=== PATIENT | female | born 1960 | race Two or more races ===

== ENCOUNTER 2017-05-15 11:25 | Emergency (ER) | payer OTHER ==
--- NOTE | ~2017-05-15 | CT2 ---
[facility] A Service of [facility] & [facility] RADIOLOGY TEXT RESULTS PATIENT: LEDY PENA LOCATION: [facility] : 64 UNIT #: [id number] AGE: [address]: Lori Narayan SEX: F ORDER DR: [id number] [facility] [address] [place], [place] [address] [id number] MR#: [id number] Acc #: [id number] NAME: LEDY PENA. : 1960 SEX: F STUDY DATE/TIME: 05/15/2017 15:04 UNIT: [facility] ROOM: STUDY DESCRIPTION: CT Abd and Pelv W Cont Attending Physician: Lori Narayan P.A.-C. Ordering Physician: Lori Narayan P.A.-C. Primary Care Physician: [facility] [place] MEDICAL IMAGING REPORT This report is preliminary unless electronic signature is present EXAM Abdomen and pelvis CT scan with contrast HISTORY Lower abdominal pain for 2 days history of appendectomy and hysterectomy, asthma and hypertension. COMMENT CT abdomen and pelvis performed during the intravenous administration of 100 mL of Isovue-370 with imaging acquired in the axial plane followed by sagittal and coronal reconstructed images. There is no comparison. This CT exam was performed with one or more of the following radiation dose reduction techniques: automatic exposure control, adjustment of mA and/or kV according to patient size, and iterative reconstruction. FINDINGS There is no abnormality at the lung bases. CT Abdomen: There is a cyst at the caudate lobe of the liver about 3.3 cm in dimension and a tiny low-attenuation lesion in the dome of the liver in the right lobe anteriorly which is probably a cyst, but it is too small to characterize further. The spleen, adrenal glands pancreas and kidneys are unremarkable. The gallbladder is full, but there is no definite wall thickening. There could be a few tiny stones near the gallbladder neck. No pericholecystic fluid is seen. Evaluation of the pelvis shows unremarkable appearance of the urinary bladder. Patient states history of hysterectomy, but there is some possibly residual cervix. Please correlate with the operative note. This is seen to the left of midline in the pelvis. Patient provides history of appendectomy. No appendix is identified. There is no bowel obstruction. [facility]. [facility] A Service of [facility] & [facility] RADIOLOGY TEXT RESULTS PATIENT: LEDY PENA [id number] 64 UNIT #: [id number] AGE: [address]: Lori Narayan SEX: F ORDER DR: There is no free intraperitoneal air. Tiny fat-containing inguinal hernias are noted. No drainable fluid collection. Mild lower lumbar degenerative changes. IMPRESSION 1. The appendix is surgically absent per patient, not seen. There is no bowel obstruction, free air or drainable fluid collection suspected. 2. Patient is likely post partial hysterectomy. I suspect that portion of the cervix remains and please correlate with the operative note. 3. There may be tiny gallstones dependently at the gallbladder neck. There is however no evidence for gallbladder wall thickening or pericholecystic fluid. If more information is needed consider right upper quadrant ultrasound. 4. There is a large cyst of the caudate lobe of the liver incidentally noted. No further evaluation is indicated. There is a tiny probable cyst in the right lobe of the liver anteriorly as well. STAT * RESULT Dictated by... Lisandra Mcnair M.D. THIS IS AN ELECTRONICALLY VERIFIED REPORT Lisandra Mcnair M.D. at 05/17/2017 8:37 AM [place] TD: 05/15/2017 16:07 JOB #: [id number] MEDICAL IMAGING REPORT Page 1 of 1 COPY
[~2017-05-15 11:25] MED LIST: ALBUTEROL17 GM INH; FLOMAX0.4 M1 PO; LORATADINE PO; MEDROL PO; PHENERGAN PO; TOPROL XL PO; ZANTAC PO; ZESTORETIC 20/11 TAB PO; ZITHROMAX PO; [UNRECOGNIZED DRUG - OTHER] INH; [UNRECOGNIZED DRUG - OTHER] PO
[2017-05-15 13:17] LABS: URINE SOURCE CLEAN CATCH
[2017-05-15 13:26] LABS: URINE APPEARANCE CLEAR; URINE BILIRUBIN NEG (NEG); URINE BLOOD NEG (NEG); URINE COLOR YELLOW; URINE GLUCOSE NEG (NEG); URINE KETONE NEG (NEG); URINE LEUKOCYTE ESTERASE 3+ (NEG); URINE NITRATE NEG (NEG); URINE PROTEIN NEG (NEG); URINE SPECIFIC GRAVITY 1.011 (1.003-1.035); URINE UROBILINOGEN 0.2 MG/DL (NEG)
[2017-05-15 13:27] LABS: CULTURE INDICATED? YES; U HYALINE CASTS AUWI 0-2 /[LPF]; URBCS1 AUWI 0-2 /[HPF] (0-2); URINE BACTERIA AUWI NEG (NEGATIVE); URINE SQUAMOUS EPITHELIAL CELL FEW /[HPF]
[2017-05-15 13:27] LABS: BASOPHIL# 0.1 X10e3 (0-0.3); BASOPHIL% 0.8 % (0-2.5); DIFF IND NO; EOSINOPHIL# 0.3 X10e3 (0-0.7); EOSINOPHIL% 3.3 % (0.0-7.0); HEMOGLOBIN 15.4 gm/dL (12.0-16.0); LYMPHOCYTE# 2.7 X10e3 (1.0-3.5); LYMPHOCYTE% 25.1 % (17.0-45.0); MEAN CORPUSCULAR HGB CONC 33.3 g/dL (30-36); MEAN PLATELET VOLUME 8.8 FL (6.5-11.5); MONOCYTE# 0.9 X10e3 (0-1.0); MONOCYTE% 8.4 % (3.0-12.0); NEUTROPHIL# 6.6 X10e3 (1.5-7.1); NEUTROPHIL% 62.4 % (40-75); PLATELET COUNT 348 X10e3 (140-420); RED BLOOD COUNT 5.29 X10e (3.90-5.30); RED CELL DISTRIBUTION WIDTH 12.7 % (11.0-15.5); WHITE BLOOD COUNT 10.6 X10e3 (4.0-10.5)
[2017-05-15 13:53] LABS: BUN/CREATININE RATIO 23.33; CALCIUM SERUM 9.3 mg/dL (8.4-10.2); CREATININE SERUM 0.6 mg/dL (0.6-1.4); GLOM FILT RATE Estimated 103.3 mL/min (>60); POTASSIUM 3.7 mmol/L (3.5-5.1)
[2017-05-15 13:54] LABS: ALBUMIN SERUM 4.3 g/dL (3.5-5.0); BILIRUBIN, DIRECT 0.1 mg/dL (0.0-0.2); BILIRUBIN,INDIRECT 0.5 mg/dL (0.0-0.9); BILIRUBIN,TOTAL 0.6 mg/dL (0.2-2.0); PROTEIN TOTAL SERUM 7.7 g/dL (6.0-8.3)
== END 2017-05-15 16:53 | disposition home or self-care (01) ==
LOC: CED 11:25
PROVIDERS: Physician Assistant
DX: N30.00 Acute cystitis without hematuria (principal); R51 Headache; J45.909 Unspecified asthma, uncomplicated; K21.9 Gastro-esophageal reflux disease without esophagitis; I10 Essential (primary) hypertension; Z90.49 Acquired absence of other specified parts of digestive tract; Z90.710 Acquired absence of both cervix and uterus
CPT/HCPCS: 36415; 74177; 80048; 80076; 81003; 85025; 87086; 96361; 96374; 99284; J1885; Q9967